=== PATIENT | female | born 1940 | race Caucasian/White ===

== ENCOUNTER → 2019-03-25 | Outpatient (CLI) | payer MEDICARE, BC ==
--- NOTE | 2019-03-25 13:04 | PCVCIMAG ---
APPROVED REPORT Study performed: 03/25/2019 08:33:55 EXAM: Comprehensive 2D, Doppler, and color-flow Echocardiogram Patient Location: Echo lab Status: routine BSA: 1.68 HR: 70 bpmBP: 142/82 mmHg Rhythm: NSR Other Information Study Quality: Adequate Indications Murmur Dyspnea fam hx cad 2D Dimensions IVSd: 9.91 (7-11mm) LVDd: 30.86 mm PWd: 9.84 (7-11mm)Ascending Ao: 36.33 (22-36mm) LVDs: 22.72 (25-40mm) Left Atrium: 36.35 (27-40mm) Aortic Root: 34.01 mm LV Single Plane 4CH: 59.39 % LV Single Plane 2CH: 54.64 % Biplane EF: 56.8 % Volumes Left Atrial Volume (Systole) Single Plane 4CH: 33.02 mLSingle Plane 2CH: 49.53 mL LA ESV Index: 24.00 mL/m2 Aortic Valve AoV Peak Adrian.: 2.07 m/s AO Peak Gr.: 17.13 mmHgLVOT Max P.95 mmHg LVOT Max V: 1.22 m/s AI Vmax: 4.50 m/s AI [place]: 3.20 m/s2 AI PHT: 408.49 ms Mitral Valve E/A Ratio: 0.9 MV Decel. Time: 245.95 ms MV E Max Adrian.: 0.64 m/s MV A Adrian.: 0.74 m/s IVRT: 121.11 ms Pulmonary Valve PV Peak Adrian.: 0.71 m/sPV Peak Gr.: 2.04 mmHg Pulmonary Vein P Vein S: 0.33 m/sP Vein A: 0.35 m/s P Vein D: 0.41 m/sP Vein A Dur.: 166.1 msec P Vein S/D Ratio: 0.80 Tricuspid Valve TR Peak Adrian.: 2.50 m/s TR Peak Gr.: 25.10 mmHg Left Ventricle The left ventricle is normal size. There is normal LV segmental wall motion. There is normal left ventricular wall thickness. Left ventricular systolic function is normal. The left ventricular ejection fraction is within the normal range. LVEF is 55-60%. Grade I - abnormal relaxation pattern. Right Ventricle The right ventricle is normal size. The right ventricular systolic function is normal. Atria The left atrium size is normal. The right atrium size is normal. Aortic Valve Mild aortic valve sclerosis. Mild to moderate aortic regurgitation. There is no aortic valvular stenosis. Mitral Valve The mitral valve is normal in structure. Mild mitral regurgitation. No evidence of mitral valve stenosis. Tricuspid Valve The tricuspid valve is normal in structure. Mild tricuspid regurgitation with PAP of 32 mmHg. Pulmonic Valve The pulmonary valve is normal in structure. There is no pulmonic valvular regurgitation. Great Vessels The aortic root is normal in size. IVC is normal in size and collapses >50% with inspiration. Pericardium There is no pericardial effusion. There is no pleural effusion. <Conclusion> The left ventricle is normal size. LVEF is 55-60%. Grade I - abnormal relaxation pattern. The right ventricle is normal size. The left atrium size is normal. Mild aortic valve sclerosis. Mild to moderate aortic regurgitation. There is no aortic valvular stenosis. Mild mitral regurgitation. Mild tricuspid regurgitation with PAP of 32 mmHg. The aortic root is normal in size. There is no pericardial effusion.
== END | disposition home or self-care (01) ==
LOC: PCVCIMAG 08:57
PROVIDERS: ATTEND Internal Medicine Cardiovascular Disease
DX: I08.3 Combined rheumatic disorders of mitral, aortic and tricuspid valves (principal); E78.5 Hyperlipidemia, unspecified; I10 Essential (primary) hypertension; E78.00 Pure hypercholesterolemia, unspecified; Z79.899 Other long term (current) drug therapy; Z82.49 Family history of ischemic heart disease and other diseases of the circulatory system
CPT/HCPCS: 36415; 80061; 93005; 93306; G0463